=== PATIENT | female | born 2000 | race American Indian/Alaskan Native ===

== ENCOUNTER 2022-01-28 18:38 | Inpatient (IN) | payer MEDICAID ==
[2022-01-28] MEDS ORDERED: TERBUTALINE 1 MG/1 ML INJ SUB-Q PRN (22:40)
[2022-01-28] MEDS ORDERED: ACETAMINOPHEN 325 MG TAB PO PRN (22:40)
[2022-01-28] MEDS ORDERED: MINERAL OIL 30 ML ORAL LIQD PO PRN (22:40)
[2022-01-28] MEDS ORDERED: OXYTOCIN 10 UNIT/1 ML INJ IM PRN (22:40)
[2022-01-28] MEDS ORDERED: LIDOCAINE (2%) 20 MG/1 ML VIAL 20 ML MDV INFILTRATI ONE (22:40)
[2022-01-28] MEDS ORDERED: miSOPROStol 200 MCG TAB PR PRN (22:40)
[2022-01-28] MEDS ORDERED: fentaNYL 100 MCG/2 ML INJ IV PRN (22:40)
[2022-01-28] MEDS ORDERED: LOPERAMIDE 2 MG CAP PO PRN (22:40)
[2022-01-28] MEDS ORDERED: BUTORPHANOL 2 MG/1 ML INJ IV PRN ×2 (22:40→23:21)
[2022-01-28] MEDS ORDERED: METHYLERGONOVINE MALEATE 0.2 MG/ML VIAL IM PRN (22:40)
[2022-01-28] MEDS ORDERED: CARBOPROST TROMETHAMINE 250 MCG/1 ML INJ IM PRN (22:40)
[2022-01-28] MEDS ORDERED: ePHEDrine SULFATE 50 MG/1 ML INJ IV PRN (22:40)
[2022-01-28] MEDS ORDERED: OXYTOCIN DRIP 30 UNITS/500 ML BAG IV SCH ×2 (23:00)
--- NOTE | 2022-01-28 23:17 | History and Physical Report ---
History of Present Illness Date of examination: 01/28/22 Date of admission: 01/28/2022 Chief complaint: Contractions History of present illness: The patient is a 21-year-old at 38-1/7 weeks gestation who presents to OB triage reporting irregular contractions that were mild. There is no vaginal bleeding. There is no leaking of fluid. There is good movement. Cervical exam was 1 cm dilated and contractions spaced out. However, OB ultrasound limited revealed an estimated weight in the 7th percentile and an amniotic fluid next of 5.5 cm. As such, this patient's clinical condition fulfills the contemporary criteria for small for gestational age fetus [formerly known as intrauterine growth restriction (IUGR)]. As such, there is an increased risk of stillbirth at this gestational age. Therefore, induction of labor was recommended. The risks, alternatives, and benefits were explained to the patient. She voiced understanding. She wished to proceed with this plan. The patient is admitted to labor and delivery for induction of labor secondary to growth restriction. Past History Past Medical History: no pertinent history Past Surgical History: no surgical history Family/Genetic History: none Social history: no significant social history - Obstetrical History Expected Date of Delivery: 02/10/22 Actual Gestation: 38 Week(s) 1 Day(s) : 3 Para: 1 Spontaneous Abortions: 1 Medications and Allergies Allergies Allergy/AdvReac Type Severity Reaction Status Date / Time No Known Allergies Allergy Unverified 01/28/22 20:00 Active Meds: Active Medications Acetaminophen (Acetaminophen 325 Mg Tab) 650 mg PO Q4H PRN PRN Reason: Pain, Mild (1-3) Butorphanol Tartrate (Butorphanol 2 Mg/1 Ml Inj) 1 mg IV Q2H PRN PRN Reason: Pain, Moderate(4-6) LABOR PAIN Carboprost Tromethamine (Carboprost Tromethamine 250 Mcg/1 Ml Inj) 250 mcg IM ONCE PRN PRN Reason: Uterine Bleeding Ephedrine Sulfate (Ephedrine Sulfate 50 Mg/1 Ml Inj) 10 mg IV Q2M PRN PRN Reason: Hypotension Fentanyl (Fentanyl 100 Mcg/2 Ml Inj) 100 mcg IV Q2H PRN PRN Reason: Pain,Severe (7-10) LABOR PAIN Oxytocin/Sodium Chloride (Pitocin/Ns 30 Unit/500ml) 30 units in 500 mls @ 2 mls/hr IV TITR HELIO; Protocol Lactated Ringer's (Lactated Ringers) 1,000 mls @ 125 mls/hr IV DIRECT HELIO Oxytocin/Sodium Chloride (Pitocin/Ns 30 Unit/500ml) 30 units in 500 mls @ 40 mls/hr IV TITR HELIO; Protocol Lidocaine (Lidocaine (2%) 20 Mg/1 Ml Vial 20 Ml Mdv) 20 ml INFILTRATI ONCE ONE Stop: 01/28/22 22:41 Loperamide HCl (Loperamide 2 Mg Cap) 2 mg PO ONCE PRN PRN Reason: give with Hemabate Methylergonovine Maleate (Methylergonovine Maleate 0.2 Mg/Ml Vial) 0.2 mg IM ONCE PRN PRN Reason: Uterine Bleeding Mineral Oil (Mineral Oil 30 Ml Oral Liqd) 30 ml PO QHS PRN PRN Reason: Constipation Misoprostol (Misoprostol 200 Mcg Tab) 800 mcg NE ONCE PRN PRN Reason: Uterine Bleeding Misoprostol (Misoprostol 25 Mcg Tab) 25 mcg PO Q4H HELIO Oxytocin (Oxytocin 10 Unit/1 Ml Inj) 10 unit IM ONCE PRN PRN Reason: Uterine Bleeding Terbutaline Sulfate (Terbutaline 1 Mg/1 Ml Inj) 0.25 mg SUB-Q ONCE PRN PRN Reason: Hyperstimulation/Hypertonicity Review of Systems All systems: negative - Vital Signs Vital signs: Vital Signs Pulse Ox 91 01/28/22 19:20 Temp Pulse Resp BP Pulse Ox 98.1 F 61 119/73 81 L 01/28/22 19:40 01/28/22 21:48 01/28/22 19:29 01/28/22 21:48 - Physical Exam Breasts: Positive: normal Cardiovascular: Regular rate Lungs: Positive: Normal air movement Abdomen: Positive: normal appearance Genitourinary (Female): Positive: normal external genitalia, normal perenium Vulva: both: normal Vagina: Positive: normal moisture Uterus: Positive: enlarged Adnexa: both: normal Anus/Rectum: Positive: normal perianal skin Extremities: Positive: normal Deep Tendon Reflex Grade: Normal +2 - Obstetrical FHR: category 1 Uterine Contraction Monitor Mode: External Cervical Dilatation: 1 Cervical Effacement Percentage: 50 station: -3 Uterine Contraction Pattern: Irregular Results All other labs normal. Ultrasound: report reviewed (OB Ultasound Limited= SLIUP. Vertex. Anterior placenta. EFW= 2638 g (7th %-ile). SWETHA= 5.5 cm.), image reviewed Assessment and Plan - Patient Problems (1) 38 weeks gestation of Current Visit: Yes Status: Acute Plan to address problem: Prentatal care is up-to-date at [facility]. She is GBS (-). (2) Small for gestational age fetus during in third trimester Current Visit: Yes Status: Acute Plan to address problem: However, OB ultrasound limited revealed an estimated weight in the 7th percentile. As such, this patient's clinical condition fulfills the contemporary criteria for small for gestational age fetus [formerly known as intrauterine growth restriction (IUGR)]. As such, there is an increased risk of stillbirth at this gestational age (per GRIT, DIGITAT, and TRUFFLE trials). Therefore, induction of labor was recommended. The risks, alternatives, and benefits were explained to the patient. She voiced understanding. She wished to proceed with this plan. (3) Encounter for induction of labor Current Visit: Yes Status: Acute Plan to address problem: Admit to labor and delivery for induction of labor secondary to small for gestational age (SGA) fetus at this gestational age. Ripen cervix with oral Cytotec.
--- NOTE | 2022-01-28 23:39 | Ultrasound Report ---
ULTRASOUND OBSTETRIC COMPLETE INDICATION / CLINICAL INFORMATION: swetha, efw. Clinical Gestational Age (GA) in weeks, days: 38 weeks 1 day TECHNIQUE: Transabdominal. COMPARISON: None available. FINDINGS: NUMBER: Single PRESENTATION: cephalic PLACENTA: Not evaluated MATERNAL ADNEXA: No significant abnormality. AMNIOTIC FLUID VOLUME: Diminished AMNIOTIC FLUID INDEX (SWETHA) in cm (if measured): 5.5 MEASUREMENTS: - Biparietal Diameter = 8.8 cm = 36 weeks 6 days - Head Circumference = 30.9 cm = 34 weeks 3 days - Abdominal Circumference = 32.4 cm = 36 weeks 2 days - Femur Length = 6.4 cm = 32 weeks 6 days - Estimated Weight (in grams, if calculated): 2638 - Heart Rate (beats per minute): 135 ADDITIONAL FINDINGS: None. AVERAGE ULTRASOUND AGE (AUA) in weeks, days = 35 weeks 1 day IMPRESSION: 1. Single intrauterine with AUA of 35 weeks 1 day. Estimate weight of 2638 g 2. Diminished amniotic fluid index measuring 5.5 cm. 3. No other significant abnormality. Signer Name: Tulio Black MD Signed: 01/28/2022 11:35 PM Workstation Name: [id number] [id number]
[2022-01-28 23:43] LABS: Hemoglobin 10.2 gm/dl (10.1-14.3); Mean Corpuscular HGB Conc 32 % (30-34); Mean Corpuscular Volume 80 fl (79-97); Platelet Count 269 K/mm3 (140-440); Red Blood Count 3.99 M/mm3 (3.65-5.03); Red Cell Distribution Width 14.3 % (13.2-15.2)
[2022-01-28] MEDS: miSOPROStol 25 MCG TAB PO SCH (23:44)
[2022-01-28] MEDS: LACTATED RINGERS 1,000 ML IV SCH (23:48)
[2022-01-29] MEDS: miSOPROStol 25 MCG TAB PO SCH ×3 (03:21→13:16)
[2022-01-29] MEDS: LACTATED RINGERS 1,000 ML IV SCH (07:11)
[2022-01-29 11:50] VITALS: BP 114/56
--- NOTE | 2022-01-29 13:20 | Event Note ---
Date: 01/29/22 S: States that she wants to go home because nothing is happening and she wants to sign out AMA O: SWETHA was 5.5 on 01/28, Reactive NST, last dose of cytotec was at 0711 A: 38.1 weeks for Induction of labor P : Discussed in detail oligohydramnious and the risks of that, which could result in . After the discussion she has decided to sign out AMA.
== END 2022-01-29 13:08 | disposition left against medical advice (07) | DRG 782 ==
LOC: TRG 18:38 → APU 18:40 → TRG 22:41 → LD 22:41
PROVIDERS: ADMIT Obstetrics & Gynecology; ATTEND Obstetrics & Gynecology
PROC: 3E0DXGC Introduction of Other Therapeutic Substance into Mouth and Pharynx, External Approach (ICD-10-PCS; principal; 2022-01-28)
DX: O36.5930 Maternal care for other known or suspected poor fetal growth, third trimester, not applicable or unspecified (principal); Z3A.38 38 weeks gestation of pregnancy; Z53.29 Procedure and treatment not carried out because of patient's decision for other reasons; Z20.822 Contact with and (suspected) exposure to COVID-19
CPT/HCPCS: 36415; 76815; 76816; 85027; 86592; 86850; 86900; 86901; G0378; J7120; U0003